=== PATIENT | female | born 1995 | race Caucasian/White ===

== ENCOUNTER 2021-05-22 17:26 | Inpatient (IN) | payer OTHER ==
[~2021-05-22] VITALS: Ht 170.2 cm; Wt 117.9 kg
[2021-05-22] MEDS ORDERED: PANADOL (17:39)
--- NOTE | 2021-05-22 17:39 | NUR ---
PTE SE RECIBE POR FEVER REFIERE PTE.
[2021-05-23] MEDS ORDERED: PANADOL EXTRA500 MG (08:25)
== END 2021-05-24 12:54 | disposition home or self-care (01) | DRG 866 ==
LOC: ER 17:26 → SEC-K 18:01 → MEDI 05-23 00:35
PROVIDERS: ADMIT Internal Medicine; ATTEND Internal Medicine
DX: B34.9 Viral infection, unspecified (principal); D69.49 Other primary thrombocytopenia